=== PATIENT | female | born 1940 | race Caucasian/White ===

== ENCOUNTER 2019-02-02 10:03 | Outpatient (CLI) | payer MEDICARE, OTHER ==
--- NOTE | 2019-02-07 11:50 | CONSULTATION REPORT ---
DATE OF CONSULTATION: 02/02/2019 SUBJECTIVE: Sherice Cao is an 79-year-old female presenting to clinic today for a first visit with me for pain in the right foot. The patient has had pain since approximately 2017. She does not admit to any known etiology. She has had pain that has come and gone here and there, but states that the pain most recently has been noted in the evening when she finally gets into bed. The pain is noted over the dorsal second metatarsal area of the left foot. The patient has undergone multiple tests and imaging studies including x- rays and most recently an MRI. She also has had arterial and venous Dopplers performed. She was sent as a referral from Dr. De Leon in [place] to come and see me as she just recently moved back into [place] from [place]. The patient as I mentioned above had multiple studies done including an arterial Doppler that showed no hemodynamically significant stenosis in triphasic waveforms. That was performed on 01/25/2019. She also had a venous Doppler performed on the same day that was negative for any DVTs in the left lower extremity. The patient also had an MRI on 01/27/2019 that was performed at [facility]. The patient had marrow edema compatible with the stress fracture of the second metatarsal, as well as some adjacent likely reactive edema in the medial cuneiform. There were no other concerning areas or lesions or any sort of drainable fluid collections. The ankle mortise looked great. The flexor tendon looked great. The Achilles tendon and plantar fascia looked fine. Everything else looked pretty normal. She may have a history of some remote injury to the deltoid ligaments, attenuation or remote injury to the anterior talofibular ligament and calcaneofibular ligament and posterior talofibular ligament was maintained. Essentially everything was pretty well negative except for the marrow edema compatible with the stress fracture of the second metatarsal, left foot. The patient was sent here for further treatment due to the fracture. The patient does not admit to any other pain or issues or any fevers, chills, nausea, vomiting, shortness of breath or chest pain. OBJECTIVE: Vitals: Temperature 97.4 degrees Fahrenheit, heart rate 73, respiration rate 18, blood pressure 129/79. O2 saturation is 94% on room air. Vascular: 1+ DP and PT pulses bilaterally. Capillary refill time is less than 3 seconds to the toes bilaterally. There is mild edema noted in the left foot. Dermatologic: There is no ecchymosis noted or open lesions or hyperkeratotic lesions. There are no concerning skin lesions noted. Musculoskeletal: There is significant pain on palpation noted along the left second metatarsal area especially mid distal half. There is mild pain on palpation noted at the Lisfrancs ligament complex area at the base of the second metatarsal, but the pain is much more significant distally in the second metatarsal. There are no other gross abnormalities noted or pain to palpation elsewhere at this time. Neurologic: Light touch sensation is intact to the toes bilaterally. ASSESSMENT AND PLAN: 1. Left second metatarsal stress fracture. We discussed the importance of immobilization due to the stress fracture that she seems to have. She does not have any CDs of the x-rays or MRI that she has obtained in the past. I only have paper results of the MRI and arterial and venous studies. I do not have the x-ray studies. We discussed the importance of immobilizing and as we cannot immobilize her in a cast, after our discussion with the patient regarding the importance of being in a wheelchair in order to do that safely, she does not have a home that allows her to do that, we decided that we would consider a boot. We put a boot on her today and carefully walked with her and she is not able to do so safely. We then tried a surgical shoe to see if we can at least provide some stability and support to the foot to see if it provides any help to allow her to heal safely. She walked with the shoe with some support next to her just in case she needed us and she stated that it felt really good to walk in that shoe. We will see if she continues to have improvement with the pain in the evenings when she usually feels the pain, by being in a surgical shoe at all times when she is weightbearing. The patient has no further questions or concerns and knows that we cannot immobilize to heal this in the ideal fashion, but we will do our best to do so slowly. If we are not getting any improvement in the next three or four weeks, we may also look into getting a bone stimulator from [employer] to see if that can help stimulate some healing, as this seems to be a long-term fracture. We will have to see if we can get approval even though we are just barely starting treatment since this started back in [place]. The patient has no further questions or concerns and we will have her back for a return to clinic visit in three to four weeks at the [facility]. She will call to make that appointment. Forms were signed for See [employer] for the surgical shoe. China [email or web address].(Dictated/not signed) /[employer] [id number] /mab MTDD
== END 2019-02-02 10:35 ==
LOC: POD 10:03
PROVIDERS: ATTEND Podiatrist Foot & Ankle Surgery
DX: S92.322A Displaced fracture of second metatarsal bone, left foot, initial encounter for closed fracture (principal); X58.XXXA Exposure to other specified factors, initial encounter; Y99.8 Other external cause status
CPT/HCPCS: 99203